=== PATIENT | male | born 1950 | race Caucasian/White ===

== ENCOUNTER 2018-12-23 04:28 | Inpatient (IN) | payer OTHER ==
[~2018-12-23] VITALS: Ht 180.3 cm; Wt 101.6 kg
[2018-12-23 04:46] VITALS: BP_SYST 166
[2018-12-23] MEDS ORDERED: APIX5TAB4 PO (05:04)
[2018-12-23] MEDS ORDERED: CARV3.1246 PO (05:06)
[2018-12-23] MEDS ORDERED: NACL 0.9% 1,000 ML IV ONE (05:06)
[2018-12-23] MEDS ORDERED: DILT120C52 PO (05:06)
[2018-12-23] MEDS ORDERED: PIOG45TA63 PO (05:08)
[2018-12-23] MEDS ORDERED: GLIP5TAB26 PO (05:08)
[2018-12-23] MEDS ORDERED: LIP10 PO (05:11)
[2018-12-23] MEDS ORDERED: TAMS-11 PO (05:11)
[2018-12-23] MEDS ORDERED: TADA5TAB2 PO (05:14)
[2018-12-23] MEDS ORDERED: DIPHENHYDRAMINE INJ 50 MG/ML VIAL IVP ONE ×2 (05:15→07:30)
[2018-12-23] MEDS ORDERED: AMIO100T4 PO (05:15)
[2018-12-23] MEDS ORDERED: MORPHINE 4 MG/ML INJ. SYRINGE IM ONE (05:15)
[2018-12-23] MEDS ORDERED: ONDANSETRON HCL 4 MG/2 ML VIAL IVP ONE (05:15)
[2018-12-23] MEDS ORDERED: MORPHINE 4 MG/ML INJ. SYRINGE IVP ONE ×2 (05:30→07:30)
[2018-12-23 05:54] LABS: BASOPHILS % (AUTO) 0.2 % (0.0-2.0); EOSINOPHILS % (AUTO) 0.1 % (0.0-4.0); HEMATOCRIT 40.2 % (36-54); HEMOGLOBIN 12.9 g/dL (14.0-18.0); LYMPHOCYTES # (AUTO) 0.9 K/uL (1.0-5.5); LYMPHOCYTES % (AUTO) 7.6 % (20.5-51.5); MEAN CORPUSCULAR HEMOGLOBIN 30 pg (27-31); MEAN CORPUSCULAR HGB CONC 32 % (32-36); MEAN CORPUSCULAR VOLUME 93 fL (79.0-98.0); MONOCYTES # (AUTO) 1.2 K/uL (0.0-1.0); MONOCYTES % (AUTO) 10.2 % (1.7-9.3); NEUTROPHILS # (AUTO) 9.5 K/uL (1.8-7.7); NEUTROPHILS % (AUTO) 81.9 % (40.0-70.0); PLATELET COUNT (AUTO) 200 K/uL (130-430); RED BLOOD CELL COUNT(AUTO) 4.31 MIL/uL (4.2-6.2); RED CELL DISTRIBUTION WIDTH 15.3 % (9.0-15.0); WHITE BLOOD COUNT (AUTO) 11.6 K/uL (4.8-10.8)
[2018-12-23 06:09] LABS: CALCIUM 8.9 mg/dL (8.4-11.0); CREATININE 3.48 mg/dL (0.55-1.30); POTASSIUM 4.4 mmol/L (3.5-5.1)
[2018-12-23 06:13] LABS: PROTHROMBIN TIME 10.5 SECS (9.5-12.5)
[2018-12-23 06:14] LABS: ALBUMIN 3.6 g/dL (3.4-4.8); TOTAL BILIRUBIN 1.5 mg/dL (0.0-1.0)
[2018-12-23 06:54] LABS: BILIRUBIN,URINE NEGATIVE (NEGATIVE); BLOOD, URINE 2+ (NEGATIVE); CLARITY/URINE CLEAR (CLEAR); COLOR,URINE YELLOW (YELLOW); GLUCOSE,URINE NEGATIVE (NEGATIVE); KETONES,URINE 1+ (NEGATIVE); LEUKOCYTE ESTERASE ,URINE NEGATIVE (NEGATIVE); NITRITE, URINE NEGATIVE (NEGATIVE); PROTEIN URINE 2+ (NEGATIVE); UROBILINOGEN,URINE 0.2 (0.2-1.0)
[2018-12-23 07:12] LABS: BACTERIA,URINE FEW /HPF (None Seen); WBC,URINE 0-3 /HPF (0-3)
[2018-12-23] MEDS ORDERED: DEXTROSE 50% JECT 50 ML DISP.SYRIN IVP PRN (08:30)
[2018-12-23] MEDS ORDERED: ACETAMINOPHEN 325 MG TABLET PO PRN (08:30)
[2018-12-23] MEDS ORDERED: METOCLOPRAMIDE HCL 10 MG/2 ML VIAL IVP PRN (08:30)
[2018-12-23] MEDS ORDERED: APIXABAN 2.5 MG TABLET PO SCH (09:00)
[2018-12-23 09:04] VITALS: BP_SYST 141
[2018-12-23] MEDS: ATORVASTATIN 10 MG TABLET PO SCH (09:24)
[2018-12-23] MEDS: TAMSULOSIN HCL 0.4 MG CAP PO SCH ×2 (09:24→21:20)
[2018-12-23] MEDS: AMIODARONE HCL 200 MG TABLET PO SCH (09:25)
[2018-12-23] MEDS: CARVEDILOL 3.125 MG TABLET (COREG) PO SCH ×2 (09:25→21:20)
[2018-12-23] MEDS: D5NS 1,000 ML IV SCH ×2 (09:26→21:19)
[2018-12-23] MEDS: INSULIN REGULAR, HUMAN 100 UNITS/ML, 10 ML VIAL (novoLIN R) SUBCUT PRN ×2 (11:49→17:13)
[2018-12-23 12:00] VITALS: BP_SYST 157
[2018-12-23] MEDS: MORPHINE 4 MG/ML INJ. SYRINGE IVP PRN ×2 (13:56→21:21)
[2018-12-23 16:18] VITALS: BP_SYST 142
[2018-12-23 20:29] VITALS: BP_SYST 141
[2018-12-23] MEDS: ONDANSETRON HCL 4 MG/2 ML VIAL IVP PRN (21:20)
[2018-12-24] MEDS: INSULIN REGULAR, HUMAN 100 UNITS/ML, 10 ML VIAL (novoLIN R) SUBCUT PRN ×4 (00:23→23:44)
[2018-12-24 00:53] VITALS: BP_SYST 133
[2018-12-24] MEDS: MORPHINE 4 MG/ML INJ. SYRINGE IVP PRN ×2 (03:11→14:05)
[2018-12-24 07:03] LABS: BASOPHILS # (AUTO) 0.1 K/uL (0.0-0.2); BASOPHILS % (AUTO) 0.4 % (0.0-2.0); EOSINOPHILS % (AUTO) 0.1 % (0.0-4.0); HEMATOCRIT 35.9 % (36-54); HEMOGLOBIN 11.5 g/dL (14.0-18.0); LYMPHOCYTES # (AUTO) 1.2 K/uL (1.0-5.5); LYMPHOCYTES % (AUTO) 9.7 % (20.5-51.5); MEAN CORPUSCULAR HEMOGLOBIN 30 pg (27-31); MEAN CORPUSCULAR HGB CONC 32 % (32-36); MEAN CORPUSCULAR VOLUME 94 fL (79.0-98.0); MONOCYTES # (AUTO) 1.8 K/uL (0.0-1.0); NEUTROPHILS # (AUTO) 9.7 K/uL (1.8-7.7); NEUTROPHILS % (AUTO) 75.8 % (40.0-70.0); PLATELET COUNT (AUTO) 157 K/uL (130-430); RED BLOOD CELL COUNT(AUTO) 3.83 MIL/uL (4.2-6.2); RED CELL DISTRIBUTION WIDTH 15.8 % (9.0-15.0); WHITE BLOOD COUNT (AUTO) 12.8 K/uL (4.8-10.8)
[2018-12-24 07:19] LABS: CALCIUM 8.4 mg/dL (8.4-11.0); CREATININE 4.25 mg/dL (0.55-1.30); POTASSIUM 4.8 mmol/L (3.5-5.1)
[2018-12-24 07:25] LABS: ALBUMIN 2.8 g/dL (3.4-4.8); TOTAL BILIRUBIN 1.2 mg/dL (0.0-1.0)
[2018-12-24 08:06] VITALS: BP_SYST 139
[2018-12-24] MEDS: cefTRIAXone 1 GM IVPB PREMIX 50 ML IV SCH (09:57)
[2018-12-24] MEDS ORDERED: PHENAZOPYRIDINE HCL 100 MG TABLET PO ONE (10:00)
[2018-12-24] MEDS: CARVEDILOL 3.125 MG TABLET (COREG) PO SCH ×2 (10:06→20:28)
[2018-12-24] MEDS: ATORVASTATIN 10 MG TABLET PO SCH (10:06)
[2018-12-24] MEDS: AMIODARONE HCL 200 MG TABLET PO SCH (10:08)
[2018-12-24] MEDS: TAMSULOSIN HCL 0.4 MG CAP PO SCH ×2 (10:08→20:28)
[2018-12-24] MEDS: AZITHROMYCIN 500 MG in NS 250 ML IV SCH (10:17)
[2018-12-24] MEDS: LEVOFLOXACIN 250 MG/D5W 50 ML IV SCH (11:37)
[2018-12-24] MEDS: PHENAZOPYRIDINE HCL 100 MG TABLET PO SCH ×2 (12:56→17:37)
[2018-12-24] MEDS: D5NS 1,000 ML IV SCH (12:57)
[2018-12-24 13:27] VITALS: BP_SYST 126
[2018-12-24 18:13] VITALS: BP_SYST 130
[2018-12-24 20:00] VITALS: BP_SYST 135
[2018-12-25 00:12] VITALS: BP_SYST 149
[2018-12-25] MEDS: D5NS 1,000 ML IV SCH ×3 (01:57→18:06)
[2018-12-25] MEDS: MORPHINE 4 MG/ML INJ. SYRINGE IVP PRN (01:58)
[2018-12-25 05:18] LABS: BASOPHILS % (AUTO) 0.4 % (0.0-2.0); EOSINOPHILS # (AUTO) 0.1 K/uL (0.0-0.4); EOSINOPHILS % (AUTO) 1.5 % (0.0-4.0); HEMATOCRIT 32.2 % (36-54); HEMOGLOBIN 10.4 g/dL (14.0-18.0); LYMPHOCYTES # (AUTO) 1.1 K/uL (1.0-5.5); LYMPHOCYTES % (AUTO) 11.1 % (20.5-51.5); MEAN CORPUSCULAR HEMOGLOBIN 30 pg (27-31); MEAN CORPUSCULAR HGB CONC 32 % (32-36); MEAN CORPUSCULAR VOLUME 94 fL (79.0-98.0); MONOCYTES # (AUTO) 1.2 K/uL (0.0-1.0); MONOCYTES % (AUTO) 12.4 % (1.7-9.3); NEUTROPHILS # (AUTO) 7.1 K/uL (1.8-7.7); NEUTROPHILS % (AUTO) 74.6 % (40.0-70.0); PLATELET COUNT (AUTO) 135 K/uL (130-430); RED BLOOD CELL COUNT(AUTO) 3.42 MIL/uL (4.2-6.2); WHITE BLOOD COUNT (AUTO) 9.5 K/uL (4.8-10.8)
[2018-12-25 05:54] LABS: ALBUMIN 2.6 g/dL (3.4-4.8); CALCIUM 8.4 mg/dL (8.4-11.0); CREATININE 4.64 mg/dL (0.55-1.30); POTASSIUM 4.1 mmol/L (3.5-5.1)
[2018-12-25] MEDS: INSULIN REGULAR, HUMAN 100 UNITS/ML, 10 ML VIAL (novoLIN R) SUBCUT PRN ×3 (06:03→17:49)
[2018-12-25 08:00] VITALS: BP_SYST 152
[2018-12-25] MEDS: ATORVASTATIN 10 MG TABLET PO SCH (09:22)
[2018-12-25] MEDS: PHENAZOPYRIDINE HCL 100 MG TABLET PO SCH ×3 (09:22→17:47)
[2018-12-25] MEDS: cefTRIAXone 1 GM IVPB PREMIX 50 ML IV SCH (09:22)
[2018-12-25] MEDS: CARVEDILOL 3.125 MG TABLET (COREG) PO SCH ×2 (09:22→20:10)
[2018-12-25] MEDS: TAMSULOSIN HCL 0.4 MG CAP PO SCH ×2 (09:22→20:08)
[2018-12-25] MEDS: AMIODARONE HCL 200 MG TABLET PO SCH (09:23)
[2018-12-25] MEDS: LEVOFLOXACIN 250 MG/D5W 50 ML IV SCH (10:20)
[2018-12-25] MEDS: AZITHROMYCIN 500 MG in NS 250 ML IV SCH (10:20)
[2018-12-25 13:45] VITALS: BP_SYST 127
[2018-12-25] MEDS: PANTOPRAZOLE SODIUM 40 MG TAB PO ONE ×2 (14:52→18:02)
[2018-12-25 17:17] VITALS: BP_SYST 131
[2018-12-25 19:15] VITALS: BP_SYST 138
[2018-12-25] MEDS ORDERED: MINERAL OIL 30 ML UDC PO PRN (20:00)
[2018-12-26] MEDS: INSULIN REGULAR, HUMAN 100 UNITS/ML, 10 ML VIAL (novoLIN R) SUBCUT PRN ×5 (00:13→20:53)
[2018-12-26] MEDS: ZOLPIDEM TARTRATE 5 MG TABLET PO PRN (00:15)
[2018-12-26 00:52] VITALS: BP_SYST 142
[2018-12-26] MEDS: MORPHINE 4 MG/ML INJ. SYRINGE IVP PRN (04:04)
[2018-12-26] MEDS: D5NS 1,000 ML IV SCH ×2 (06:00→20:43)
[2018-12-26 06:13] LABS: CALCIUM 8.5 mg/dL (8.4-11.0); POTASSIUM 4.2 mmol/L (3.5-5.1)
[2018-12-26 06:19] LABS: BASOPHILS % (AUTO) 0.5 % (0.0-2.0); EOSINOPHILS # (AUTO) 0.1 K/uL (0.0-0.4); HEMATOCRIT 31.2 % (36-54); LYMPHOCYTES # (AUTO) 0.7 K/uL (1.0-5.5); LYMPHOCYTES % (AUTO) 8.2 % (20.5-51.5); MEAN CORPUSCULAR HEMOGLOBIN 30 pg (27-31); MEAN CORPUSCULAR HGB CONC 32 % (32-36); MEAN CORPUSCULAR VOLUME 94 fL (79.0-98.0); MONOCYTES # (AUTO) 1.1 K/uL (0.0-1.0); MONOCYTES % (AUTO) 12.5 % (1.7-9.3); NEUTROPHILS # (AUTO) 6.7 K/uL (1.8-7.7); NEUTROPHILS % (AUTO) 77.8 % (40.0-70.0); PLATELET COUNT (AUTO) 141 K/uL (130-430); RED BLOOD CELL COUNT(AUTO) 3.34 MIL/uL (4.2-6.2); RED CELL DISTRIBUTION WIDTH 15.5 % (9.0-15.0); WHITE BLOOD COUNT (AUTO) 8.7 K/uL (4.8-10.8)
[2018-12-26 06:21] LABS: ALBUMIN 2.5 g/dL (3.4-4.8); TOTAL BILIRUBIN 0.9 mg/dL (0.0-1.0)
[2018-12-26 07:43] VITALS: BP_SYST 133
[2018-12-26] MEDS: cefTRIAXone 1 GM IVPB PREMIX 50 ML IV SCH (08:05)
[2018-12-26] MEDS: TAMSULOSIN HCL 0.4 MG CAP PO SCH ×2 (08:05→20:43)
[2018-12-26] MEDS: ATORVASTATIN 10 MG TABLET PO SCH (08:05)
[2018-12-26] MEDS: PHENAZOPYRIDINE HCL 100 MG TABLET PO SCH (08:05)
[2018-12-26] MEDS: PANTOPRAZOLE SODIUM 40 MG TAB PO SCH (08:05)
[2018-12-26] MEDS: AMIODARONE HCL 200 MG TABLET PO SCH (08:06)
[2018-12-26] MEDS: CARVEDILOL 3.125 MG TABLET (COREG) PO SCH ×2 (08:07→20:43)
[2018-12-26] MEDS: LEVOFLOXACIN 250 MG/D5W 50 ML IV SCH (09:38)
[2018-12-26] MEDS ORDERED: FUROSEMIDE 40 MG/4 ML VIAL IVP ONE (10:30)
[2018-12-26 11:36] VITALS: BP_SYST 152
[2018-12-26 13:21] LABS: BILIRUBIN,URINE NEGATIVE (NEGATIVE); CLARITY/URINE CLEAR (CLEAR); GLUCOSE,URINE TRACE (NEGATIVE); KETONES,URINE NEGATIVE (NEGATIVE); LEUKOCYTE ESTERASE ,URINE NEGATIVE (NEGATIVE); NITRITE, URINE POSITIVE (NEGATIVE); PROTEIN URINE 2+ (NEGATIVE)
[2018-12-26 13:33] LABS: BLOOD, URINE TRACE (NEGATIVE)
[2018-12-26 13:34] LABS: COLOR,URINE ORANGE (YELLOW)
[2018-12-26 13:35] LABS: BACTERIA,URINE RARE /HPF (None Seen); MUCUS,URINE 1+ /LPF (None Seen); RBC,URINE 0-3 /HPF (0-3); WBC,URINE 0-3 /HPF (0-3)
[2018-12-26 16:30] VITALS: BP_SYST 147
[2018-12-26 20:00] VITALS: BP_SYST 144
[2018-12-26 23:18] VITALS: BP_SYST 130
[2018-12-27] MEDS: ZOLPIDEM TARTRATE 5 MG TABLET PO PRN ×2 (00:11→21:18)
[2018-12-27] MEDS: MORPHINE 4 MG/ML INJ. SYRINGE IVP PRN ×2 (02:38→11:05)
[2018-12-27] MEDS: INSULIN REGULAR, HUMAN 100 UNITS/ML, 10 ML VIAL (novoLIN R) SUBCUT PRN ×4 (06:19→23:18)
[2018-12-27] MEDS: D5NS 1,000 ML IV SCH ×2 (06:21→17:33)
[2018-12-27 06:57] LABS: BASOPHILS % (AUTO) 0.6 % (0.0-2.0); EOSINOPHILS # (AUTO) 0.1 K/uL (0.0-0.4); EOSINOPHILS % (AUTO) 1.6 % (0.0-4.0); HEMOGLOBIN 10.3 g/dL (14.0-18.0); LYMPHOCYTES # (AUTO) 0.8 K/uL (1.0-5.5); LYMPHOCYTES % (AUTO) 9.8 % (20.5-51.5); MEAN CORPUSCULAR HEMOGLOBIN 30 pg (27-31); MEAN CORPUSCULAR HGB CONC 32 % (32-36); MEAN CORPUSCULAR VOLUME 94 fL (79.0-98.0); NEUTROPHILS # (AUTO) 5.8 K/uL (1.8-7.7); PLATELET COUNT (AUTO) 163 K/uL (130-430); RED CELL DISTRIBUTION WIDTH 15.1 % (9.0-15.0); WHITE BLOOD COUNT (AUTO) 7.8 K/uL (4.8-10.8)
[2018-12-27 06:58] LABS: ALBUMIN 2.5 g/dL (3.4-4.8); CALCIUM 8.7 mg/dL (8.4-11.0); CREATININE 5.55 mg/dL (0.55-1.30)
[2018-12-27 07:52] VITALS: BP_SYST 146
[2018-12-27] MEDS: CARVEDILOL 3.125 MG TABLET (COREG) PO SCH ×2 (09:48→21:18)
[2018-12-27] MEDS: ATORVASTATIN 10 MG TABLET PO SCH (09:48)
[2018-12-27] MEDS: TAMSULOSIN HCL 0.4 MG CAP PO SCH ×2 (09:48→21:18)
[2018-12-27] MEDS: PANTOPRAZOLE SODIUM 40 MG TAB PO SCH (09:48)
[2018-12-27] MEDS: AMIODARONE HCL 200 MG TABLET PO SCH (09:49)
[2018-12-27] MEDS: cefTRIAXone 1 GM IVPB PREMIX 50 ML IV SCH (11:05)
[2018-12-27 12:15] VITALS: BP_SYST 154
[2018-12-27 16:14] VITALS: BP_SYST 151
[2018-12-27 19:51] VITALS: BP_SYST 137
[2018-12-28 00:28] VITALS: BP_SYST 144
[2018-12-28] MEDS: D5NS 1,000 ML IV SCH ×2 (00:49→11:11)
[2018-12-28] MEDS: ONDANSETRON HCL 4 MG/2 ML VIAL IVP PRN (04:41)
[2018-12-28] MEDS: MORPHINE 4 MG/ML INJ. SYRINGE IVP PRN (04:41)
[2018-12-28] MEDS: INSULIN REGULAR, HUMAN 100 UNITS/ML, 10 ML VIAL (novoLIN R) SUBCUT PRN ×3 (05:52→16:56)
[2018-12-28 07:59] VITALS: BP_SYST 149
[2018-12-28] MEDS: cefTRIAXone 1 GM IVPB PREMIX 50 ML IV SCH (08:36)
[2018-12-28] MEDS: CARVEDILOL 3.125 MG TABLET (COREG) PO SCH (08:37)
[2018-12-28] MEDS: PANTOPRAZOLE SODIUM 40 MG TAB PO SCH (08:37)
[2018-12-28] MEDS: ATORVASTATIN 10 MG TABLET PO SCH (08:37)
[2018-12-28] MEDS: AMIODARONE HCL 200 MG TABLET PO SCH (08:37)
[2018-12-28] MEDS: TAMSULOSIN HCL 0.4 MG CAP PO SCH (08:38)
[2018-12-28 11:18] LABS: POTASSIUM 3.9 mmol/L (3.5-5.1)
[2018-12-28 11:19] LABS: CALCIUM 8.9 mg/dL (8.4-11.0); CREATININE 4.06 mg/dL (0.55-1.30)
[2018-12-28 11:37] VITALS: BP_SYST 147
[2018-12-28 15:07] VITALS: BP_SYST 138
[2018-12-28 17:21] VITALS: BP_SYST 137
[2018-12-28] MEDS ORDERED: KEF125/5 PO (17:27)
[2018-12-28] MEDS ORDERED: TAMS-11 PO (17:28)
[2018-12-29 12:32] LABS: ANTI NUCLEAR AB WITH REFLEX NEGATIVE (NEGATIVE); ATYPICAL pANCA <1:20; CYTOPLASMIC (C-ANCA) <1:20; CYTOPLASMIC (P-ANCA) <1:20
== END 2018-12-28 18:25 | disposition home or self-care (01) | DRG 699 ==
LOC: SED 04:28 → SMU 08:24
PROVIDERS: ADMIT Internal Medicine Hospice and Palliative Medicine; ATTEND Internal Medicine Hospice and Palliative Medicine
DX: N28.89 Other specified disorders of kidney and ureter (principal); I42.9 Cardiomyopathy, unspecified; N13.6 Pyonephrosis; N17.0 Acute kidney failure with tubular necrosis; N28.82 Megaloureter; I12.9 Hypertensive chronic kidney disease with stage 1 through stage 4 chronic kidney disease, or unspecified chronic kidney disease; N18.4 Chronic kidney disease, stage 4 (severe); D64.9 Anemia, unspecified; E11.22 Type 2 diabetes mellitus with diabetic chronic kidney disease; E78.5 Hyperlipidemia, unspecified; I48.91 Unspecified atrial fibrillation; K44.9 Diaphragmatic hernia without obstruction or gangrene; K57.30 Diverticulosis of large intestine without perforation or abscess without bleeding; N40.1 Benign prostatic hyperplasia with lower urinary tract symptoms; Z87.891 Personal history of nicotine dependence; Z79.899 Other long term (current) drug therapy
CPT/HCPCS: 36415; 71045; 80048; 80053; 81000-TC; 82962; 83690-TC; 85025; 85610-TC; 85730-TC; 86038; 86256; 93005; 96374; 96375; 96376; 99285; J0456; J0696; J1200; J1815; J1940; J1956; J2270; J2405; J7042; J7050